=== PATIENT | male | born 1955 | race Caucasian/White ===

== ENCOUNTER 2023-03-01 09:19 | Outpatient (CLI) | payer MEDICARE, OTHER, SELFPAY ==
--- NOTE | ~2023-03-01 | PE_ITS ---
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 TECHNIQUE: Blood glucose level was 158 mg/dL. 8.748 mCi of 18-fluorodeoxyglucose (18-FDG) was adminis tered i.v. Low dose computed tomography (CT) images were acquired from the base of the brain to the p roximal thighs for attenuation correction and anatomic localization. Positron emission tomography (PE T) images were acquired in the same distribution beginning 68 minutes after injection. Images includi ng fused PET/CT images were reconstructed in axial, coronal, and sagittal planes. Automated exposure control technique was employed. The dose-length product was 1288.51mGy-cm. COMPARISON: None FINDINGS: Head/neck: There is symmetric increased activity in the oral cavity, laryngeal muscles and ocular muscles withou t CT correlate, likely physiologic. No pathologically enlarged cervical lymphadenopathy or suspicious foci of increased FDG uptake in the visualized head or neck. Chest: Mild emphysema. 4 mm nodule along the right major fissure without evident FDG activity, potentially a n intrafissural lymph node. Calcified right lower lobe nodule consistent with old granulomatous disea se. No suspicious FDG avid pulmonary nodules, pneumonia, pulmonary edema or pleural effusion. Heart s ize is normal. No pericardial effusion. Thoracic aorta is normal in caliber. There is mild FDG uptake with maximal SUV of 5.3 associated with a region of nonuniform cortical thickening of a right axilla ry lymph node with a large central fatty hilum. No other pathologically enlarged abdominal or pelvic lymphadenopathy. Abdomen/pelvis/proximal thighs: Physiologic renal accumulation and excretion of FDG activity in the kidneys, bladder and along portio ns of ureters. 6.3 cm exophytic cyst arising from the lower pole of the right kidney. Cholecystectomy clips the gallbladder fossa. Diffuse hepatic steatosis with normal degree and heterogenous pattern o f increased uptake throughout the liver without radiologic correlate or dominant FDG avid lesion. The pancreas, spleen and bilateral adrenal glands are normal. Mild uptake scattered throughout the bowel s without radiologic correlate, also likely physiologic. Normal appendix. There are enlarged mild to moderately FDG avid lymph nodes seen along the bilateral external and comm on iliac chains concerning for metastatic disease. For reference to the most prominent include a left external iliac chain lymph node measuring 1.9 cm in maximal short axis diameter with maximal SUV of 11.3, a right common iliac chain lymph node measuring 1.7 cm in short axis diameter with maximal SUV of 11.9, a left common iliac chain lymph node near the aortic bifurcation with maximal SUV of 9.5 and a 1.4 cm left para-aortic lymph node with maximal SUV of 9.4. Musculoskeletal: No suspicious lytic, blastic or FDG avid bone lesions. IMPRESSION: 1. Multiple likely metastatic enlarged and FDG avid pelvic and lower abdominal lymph nodes along the bilateral external and common iliac chains and left para-aortic region. 2. Single right axillary lymph node with nonuniform mild cortical thickening with associated mild inc reased FDG uptake which could be either reactive or metastatic. Reviewed, dictated and finalized at location A. IMPRESSION: 1. Multiple likely metastatic enlarged and FDG avid pelvic and lower abdominal lymph nodes along the bilateral external and common iliac chains and left para- aortic region. 2. Single right axillary lymph node with nonuniform mild cortical thickening wi th associated mild increased FDG uptake which could be either reactive or metas tatic.
[2023-03-01 09:49] LABS: Glucose Point of Care 158 mg/dl (65-105)
== END 2023-03-01 09:20 | disposition home or self-care (01) ==
LOC: ANHIMG 09:28
PROVIDERS: Visit Provider Urology
DX: C67.2 Malignant neoplasm of lateral wall of bladder (principal)
CPT/HCPCS: 78815; A9552